=== PATIENT | female | born 1930 | race Caucasian/White ===

== ENCOUNTER 2017-09-04 11:11 | Inpatient (IN) | payer MEDICARE, OTHER ==
--- NOTE | 2017-09-04 11:51 | CT ---
CT HEAD NONCONTRAST DATE: 09/04/17 HISTORY: Altered mental status. Dizziness. COMPARISON: 09/03/17. FINDINGS: The large low density subdural fluid collection along the left frontotemporal convexity is unchanged in size and appearance from the prior exam. Subtle hyperdensity associated with subdural fluid just t o the left of the falx is also stable. Approximately 0.9 cm rightward shift of the septum pellucidum results from the mass effect. No intracranial hemorrhage. IMPRESSION: Stable CT appearance of the large left frontotemporal subdural hematoma with significant mass effect and rightward shift of the septum pellucidum. No new abnormalities compared to the previous exam from 1 day prior. POS: TPC
[2017-09-04 12:48] LABS: #Eosinphils 0.1 thou/uL (0.0-0.7); #Lymphocytes 0.9 thou/uL (1.20-3.40); #Monocytes 0.4 thou/uL (0.11-0.59); #Neutrophils 7.2 thou/uL (1.40-6.50); %Basophils 0.3 % (0.0-1.0); %Eosinophils 0.6 % (0.0-10.0); %Lymphocytes 10.6 % (21.0-51.0); %Monocytes 4.3 % (0.0-10.0); %Neutrophils 84.3 % (42.0-75.0); Mean Corpuscular HGB CONC 32.2 g/dL (32.0-36.0); Mean Corpuscular Hemoglobin 33.4 pg (27.0-31.0); Mean Platelet Volume 5.9 fL (7.4-10.4); Platelet Count 271 thou/uL (130-400); RBC Distribution Width 12.6 % (11.5-14.5); Red Blood Cell (RBC) Count 3.59 mill/uL (4.20-5.40); White Blood Cell (WBC) Count 8.5 thou/uL (4.8-10.8)
[2017-09-04 12:56] LABS: PTT 24.7 SEC (22.9-36.1); Prothrombin Time 13.4 SEC (12.0-14.7)
[2017-09-04 13:06] LABS: ALT (SGPT) 28 U/L (8-55); AST (SGOT) 25 U/L (5-34); Alkaline Phosphatase 129 U/L (40-150); Anion Gap 13 mmol/L (10-20); BUN (Urea Nitrogen) 41 mg/dL (9.8-20.1); Bilirubin, Total 0.7 mg/dL (0.2-1.2); Calc. Creatinine Clearance 0 mL/min (70-130); Calcium 9.3 mg/dL (7.8-10.44); Carbon Dioxide 28 mmol/L (23-31); Chloride 105 mmol/L (98-107); Estimated GFR-MDRD 32; Globulin 3.1 g/dL (2.4-3.5); Glucose 108 mg/dL (83-110); Potassium 4.5 mmol/L (3.5-5.1); Protein, Total 7.1 g/dL (6.0-8.3); Sodium 141 mmol/L (136-145)
[2017-09-04 13:13] LABS: Bilirubin Negative (Negative); Blood, Urine Negative (Negative); Clarity CLEAR (Clear); Glucose, Urine (Dipstick) Negative (Negative); Leukocyte Moderate (Negative); Nitrite Negative (Negative); Protein, Urine (Dipstick) Negative (Neg-Trace); Specific Gravity, Urine 1.016 (1.002-1.036); Urobilinogen 0.2 mg/dL (0.2-1.0); pH, Urine 5.5 (5.0-9.0)
[2017-09-04 13:14] LABS: Bacteria/HPF None Seen HPF (None Seen); RBC/HPF 0-3 HPF (0-3); WBC/HPF 0-3 HPF (0-3)
[2017-09-04 13:16] LABS: Other Microscopic Description Less than 2 mL rec'd
[2017-09-04 13:17] LABS: Hyaline Casts/LPF NONE SEEN LPF (0-3 Hyaline); Renal Epithelial None Seen HPF (0-3); Transitional Epithelial NONE SEEN HPF (0-3)
[2017-09-04 13:24] LABS: Squamous Epithelial 0-3 HPF (0-3)
--- NOTE | 2017-09-04 14:53 | HP ---
This is a 50-minute initial patient consult in which greater than 50% of the exam was spent counselin g and coordinating the patient's care. Remainder of the exam was spent in review of patient's medica l records and appropriate imaging studies. CHIEF COMPLAINT: Right-sided weakness and altered mental status with large left subdural hematoma. HISTORY OF PRESENT ILLNESS: Ms. Haile is a pleasant 86-year-old female who is rather high functioni ng sustained a fall roughly 2 weeks ago. She was seen in [facility] by our neuro surgical colleagues and was later discharged to rehab for similar symptoms as above. The patient was treated nonsurgically and at that time had a falcine subdural hematoma. Review of patient's repeat head CT from yesterday as well as today shows a large left subdural frontal and parietal collection w ith close to 1 cm midline shift. The patient remains at her neurologic baseline over the past 2 week s. Again, there was very high functioning. She does have right-sided weakness and some slurred spee ch with some aphasia, although she is able to answer questions appropriately, she is minimally verbal . Her son, Troy was updated at bedside and provides some of the history for the patient. She was previously on 81 mg aspirin for CVA 3 years ago and the only residual issue was right third digit wea kness. Again, the patient sustained a fall 2 weeks ago, subsequently developed the above symptoms. Neurosurgery is asked to evaluate the patient regarding this. PHYSICAL EXAMINATION: The patient is awake, alert, and appropriate, although when not stimulated, do es appear to rest quietly. She is easily protecting her airway. Her GCS currently is 15. She has o ccasional slurred speech and some word finding difficulties. She is able to correctly identify a pen and identify its purpose; however, it is unable to define the definition of an [place]. She follows commands in all 4 extremities, though does have moderate weakness in the right upper and right lower extremities. She is able to complete index [id number] testing; however, is slowed and less respo nse. She is unable to do this on the right. Her pupils are minimally reactive, but equal bilaterall y. She is hard of hearing. She is unable to raise her arms, in order for me to clearly test pronato r drift. IMPRESSION: Status post fall, roughly 2 weeks ago with a falcine subdural hematoma, now large left-s ided subdural hematoma. PLAN: I have discussed the patient's case and imaging with Dr. Andino as well as the patient at [facility]. The patient is a DNR/DNI code status; however, the patient's son would at least like to attempt to improve the patient's neurologic status. I therefore discussed the procedure of left-sided mayra hole placement and frontal and parietal regions with possibility of conversion into a craniotomy. We plan to do this in the morning as the patient is neurologically stable at this time. Certainly shou ld her condition progress, we may take her to surgery sooner, but again at this time, she does appear to be very stable. I discussed the procedure with the son, Troy at bedside who is her medical pow er of trade mark attorney. He does note perhaps some motivation issues as she was not participating in physical therapy while at her rehab center. He does note when his father 5 years ago, the patient has p erhaps developed some depression; however, again was a very high functioning 86-year-old prior to her recent fall. He does also note that the patient has had some difficulty with anesthesia in the past including some mentation issues and I will discuss this with Dr. Andino, but again the plan remains at this time of left-sided mayra hole placement tomorrow. We will make the patient n.p.o. at this josh e and check appropriate labs. We will also consult a [facility] team for medical management patient's co morbidities. Ample opportunity was given to the patient and her son to discuss her questions and con cerns and I have let them know that it would be very good for family to be present, so that we can di scuss the procedure again in the morning. We will follow back up on the patient, but again will writ e admission orders to the ICU. Xavier Cottrell PA-C dictating for Dr. Jorge Andino.
[2017-09-04] MEDS ORDERED: Calcium Carbonate 500 MG ChewTAB PO PRN (18:19)
[2017-09-04] MEDS ORDERED: Mag-Al 1200 mg/1200 mg/30 ML UDCUP PO PRN (18:19)
[2017-09-04] MEDS ORDERED: traMADol HCl 50 MG TAB PO PRN (18:30)
[2017-09-04] MEDS: Sodium Chloride 0.9% 1,000 ML IV SCH (21:50)
[2017-09-04] MEDS: hydrALAZINE 20 MG/ML VIAL SLOW IVP PRN (23:45)
[2017-09-05 04:15] LABS: #Eosinphils 0.1 thou/uL (0.0-0.7); #Lymphocytes 0.9 thou/uL (1.20-3.40); #Monocytes 0.4 thou/uL (0.11-0.59); #Neutrophils 6.1 thou/uL (1.40-6.50); %Basophils 0.2 % (0.0-1.0); %Eosinophils 1.1 % (0.0-10.0); %Lymphocytes 11.3 % (21.0-51.0); %Monocytes 5.2 % (0.0-10.0); %Neutrophils 82.2 % (42.0-75.0); Hemoglobin 10.7 g/dL (12.0-16.0); Mean Corpuscular HGB CONC 33.4 g/dL (32.0-36.0); Mean Corpuscular Hemoglobin 34.4 pg (27.0-31.0); Mean Platelet Volume 5.8 fL (7.4-10.4); Platelet Count 214 thou/uL (130-400); RBC Distribution Width 12.5 % (11.5-14.5); Red Blood Cell (RBC) Count 3.12 mill/uL (4.20-5.40); White Blood Cell (WBC) Count 7.5 thou/uL (4.8-10.8)
[2017-09-05 04:24] LABS: Anion Gap 15 mmol/L (10-20); BUN (Urea Nitrogen) 41 mg/dL (9.8-20.1); Calc. Creatinine Clearance 24 mL/min (70-130); Calcium 8.9 mg/dL (7.8-10.44); Carbon Dioxide 22 mmol/L (23-31); Chloride 107 mmol/L (98-107); Estimated GFR-MDRD 33; Glucose 95 mg/dL (83-110); Potassium 4.1 mmol/L (3.5-5.1); Sodium 140 mmol/L (136-145)
[2017-09-05] MEDS ORDERED: Lidocaine 0.5%/Epinephrine 1:200,000 50 ml Vial ONE (07:27)
[2017-09-05] MEDS ORDERED: Sodium Chloride 0.9% 10 ML ONE (07:27)
[2017-09-05] MEDS ORDERED: Bacitracin Zinc Ointment 30 gm TUBE ONE (07:28)
[2017-09-05] MEDS ORDERED: Thrombin 5000 UNITS/5 ML VIAL ONE (07:28)
[2017-09-05] MEDS ORDERED: Clindamycin/D5W 900 mg/50 ml Premix Bag ONE (08:22)
[2017-09-05] MEDS ORDERED: Levofloxacin 500 mg/D5W 100 ml Premix Bag ONE (08:22)
[2017-09-05] MEDS ORDERED: Fentanyl 100 MCG/2 ML VIAL ONE (08:22)
--- NOTE | 2017-09-05 08:40 | PRG ---
DATE OF SERVICE: 09/05/2017 SUBJECTIVE: Ms. Haile is known to me from prior spinal surgery. She presented with a falcine subdu ral hematoma in the recent past; however, this was increased along the left frontal region to involve a significant component of a left frontal chronic subdural hematoma resulting in a significant mass effect midline shift, right-sided hemiparesis and language dysfunction. I was contacted by Dr. Raphael wasserman and I recommended transfer to [place] for further evaluation. She has been monitored overnigh t and has been stable, but again has a sizable clot in her left frontal region. On exam, she is esse ntially aphasic. She is alert, but with some significant right-sided hemiparesis and moves left side spontaneously. IMPRESSION AND PLAN: I had a long discussion with her family and frankly at this point, she is DNR. I have given them the option of doing nothing versus mayra hole evacuation. I frankly would recommen d mayra hole evacuation as I think it gives her a chance through a minimally invasive approach to esse ntially improve her quality of life and save her life. If nothing is done, this subdural is shown th at it will progress, but I suspect strongly it would be a very slow progression and neurological decl ine, eventually resulting in her demise. The patient has been somewhat ambivalent, but in through co mmunication with the family, the family feels that she would like to pursue surgery. As such, we maxine l pursue left-sided mayra hole evacuation of subdural hematoma. They understand the risks up to and i ncluding but not limited to wound healing issues such as infection, dehiscence, CSF leak, injury to t he brain and the need for more surgery. We could always reinstate the DNR/DNI in 2 days or in approx imately 48-72 hours after surgery.
[2017-09-05] MEDS ORDERED: Ondansetron HCl/PF 4 MG/2 ML Vial IVP PRN (09:24)
[2017-09-05] MEDS ORDERED: Promethazine HCl 25 MG/ML VIAL SLOW IVP PRN (09:24)
[2017-09-05] MEDS ORDERED: Promethazine HCl 25 MG/ML VIAL IM PRN (09:24)
[2017-09-05] MEDS: Sodium Chloride 0.9% 1,000 ML IV SCH (14:50)
[2017-09-05] MEDS ORDERED: Dexamethasone 20 MG/5 ML VIAL ONE (15:17)
[2017-09-05] MEDS ORDERED: Ondansetron HCl/PF 4 MG/2 ML Vial ONE (15:17)
[2017-09-05] MEDS ORDERED: Lidocaine 1% PF 5 ML VIAL ONE (15:17)
[2017-09-05] MEDS ORDERED: PROPOFOL 200 MG/20 ML VIAL ONE (15:17)
[2017-09-05] MEDS ORDERED: PHENYLEPHRINE-NS 100 MCG/ML 10 ML SYRINGE ONE (15:17)
[2017-09-05] MEDS ORDERED: Esmolol 100 MG/10 ML VIAL ONE (15:17)
[2017-09-05] MEDS ORDERED: Glycopyrrolate 0.2 MG/ML 5 ML SYRINGE ONE (15:17)
--- NOTE | 2017-09-05 17:17 | OP ---
OR: 11. WOUND TYPE: Type 1 wound. SURGEON: Jorge Andino M.D. BUFFING MACHINE TENDER: Xavier Cottrell PA-C Modifier 57 should be added to this surgery as decision to operate was made on the day I saw the [facility] ent. PREPROCEDURE DIAGNOSES: Enlarging left-sided frontal subdural hematoma with mass effect, midline annalise ft, and neurological decline. POSTPROCEDURE DIAGNOSES: Enlarging left-sided frontal subdural hematoma with mass effect, midline sh ift, and neurological decline. PROCEDURES PERFORMED: Left frontoparietal mayra hole evacuation of subdural hematoma and placement of a subdural drain. DESCRIPTION OF PROCEDURE: After informed consent was obtained from the patient's family and the [facility] ent, she was brought to OR 11. Proper patient pause and identification was carried out. She was manuel ree in excellent endotracheal anesthesia and positioned supine on the OR table. Left frontal region and parietal regions were sterilely cleansed, prepared and draped and linear joshi made. This region was sterilely cleansed and draped. Proper patient pause and identification was carried out. Both l eft frontal and parietal linear incisions were made in mayra holes fashion. The dura coagulated. A c ruciate opening was then made in the dura and the membrane penetrated, which revealed a motor oil chr onic subdural hematoma fluid. I evacuated this until the brain was identified underlying in the subd ural drain placed and secured to the scalp. The wound was then copiously irrigated and closed in cassandra tomic layers. The patient emerged from anesthesia.
[2017-09-05] MEDS: Clindamycin/D5W 600 MG in Premix Bag 1 BAG IVPB SCH (21:07)
[2017-09-06] MEDS: hydrALAZINE 20 MG/ML VIAL SLOW IVP PRN (03:05)
[2017-09-06] MEDS: Clindamycin/D5W 600 MG in Premix Bag 1 BAG IVPB SCH ×3 (08:18→20:29)
[2017-09-06] MEDS ORDERED: Diltiazem 125 MG in Sodium Chloride 0.9% 100 ML IVPB SCH (08:45)
[2017-09-06] MEDS: Acetaminophen 325 MG TAB PO PRN (08:57)
[2017-09-06] MEDS: Sodium Chloride 0.9% 1,000 ML IV SCH (09:01)
[2017-09-06] MEDS ORDERED: Famotidine 20 MG TAB PO SCH ×2 (10:00→21:00)
--- NOTE | 2017-09-06 10:26 | PRG ---
DATE OF SERVICE: 09/06/2017 Ms. Haile is postoperative day 1 from left-sided frontoparietal mayra hole evacuation of subdural hem atoma. She has had 300 mL of output from her subdural drain. She is significantly improved. She mo ves both upper extremities to command or bending at her elbows off the bed, a bit more sluggish on th e right side, but wiggles her toes as well and is certainly much more conversant and even largely lesvia ropriate. We will start to sit her head of bed up to 30 degrees. If she tolerates this over the cou rse of the next 1 hour, we will do activity as tolerated. I have placed consultations for physical t herapy and occupational therapy for evaluation and treatment. We will advance her diet as well. We will leave the subdural drain in for 1 more day, likely remove it tomorrow, and transfer to the floor to begin normalization of activity.
--- NOTE | 2017-09-06 11:00 | RAD ---
LEFT SHOULDER 2 VIEWS: Date: 09/06/17 PROVIDED CLINICAL HISTORY: Left arm pain. FINDINGS: There is no evidence for fracture or other acute osseous abnormality. Advanced glenohumeral degenerat camilo arthrosis is noted. Acromioclavicular joint osteoarthrosis is noted. Subacromial space appears pr eserved. Visualized left lung field appears clear. IMPRESSION: Advanced glenohumeral degenerative arthrosis. POS: LEYDI
--- NOTE | 2017-09-06 12:08 | CON ---
DATE OF CONSULTATION: 09/06/2017 REQUESTING PHYSICIAN: Dr. Jorge Andino. CONSULTING PHYSICIAN: Dr. Miguel Courtney REASON FOR CONSULTATION: Left proximal humerus fracture. HISTORY OF PRESENT ILLNESS: This is an 86-year-old female, who was transferred to our facility. She sustained a fall approximately 2 weeks ago. She was seen by Neurosurgery at [facility]. It seems that her symptoms worsened over the last 2 weeks and she was transferred to our facility. Dr. Jorge Andino has performed a mayra hole evacuation yesterday. The patient has improved in her neurologic exam since surgery. Family expressed concerns over multiple falls in the last couple of weeks, most specifically leading to a left proximal humerus fracture. We were asked to see the patient for this reason. At bedside , patient currently states that she has no pain to the left upper extremity. She states that she does not recall falling several weeks ago. She thinks that she fell earlier this week, but she is unsure. She denies any numbness or tingling in the left upper extremity. She denies a history of surgery in the left upper extremity. She is right hand dominant. At this point in time, she believes that she has had some pain medication and is unable to verbalize any more information. PAST MEDICAL HISTORY: Significant for a history of cerebrovascular accident in the past. The patient also has a history of high cholesterol, neuropathy, shingles, diverticulitis, hypoalbuminemia. PAST SURGICAL HISTORY: Includes cataract surgery, appendectomy, cholecystectomy , hysterectomy, and tonsillectomy. SOCIAL HISTORY: The patient states that she lives at home alone. She denies any alcohol, drug, or smoking. FAMILY HISTORY: Reviewed and noncontributory. REVIEW OF SYSTEMS: A 10-point review of systems was conducted and otherwise negative except for as stated above. PHYSICAL EXAMINATION: VITAL SIGNS: Blood pressure 114/62, heart rate of 100, respiratory rate 21. GENERAL: The patient is awake and alert. She is pleasant and cooperative with physical exam today. No family is at bedside at the current time. HEENT: There is a neurosurgical dressing present to her head. There is a drain present as well. NECK: Supple. Trachea is midline. RESPIRATORY: Breathing is nonlabored. EXTREMITIES: The left upper extremity was examined. The patient has intact active and passive range of motion without any pain elicited. The patient is able to forwardly flex approximately to 150 degrees. She is able to externally rotate to neutral. No tenderness to palpation along the humeral shaft. Rotator cuff strength not assessed. Distal neurovascular status is intact. Strength is 5/5 distally with handgrip and flexion/extension of the wrist. RADIOGRAPHIC FINDINGS: Including two views of the left shoulder show evidence of what appears to be a proximal humerus fracture through the neck. This is impacted somewhat. It is minimally displaced. There is evidence of new periosteal bone formation present. I believe this is subacute. Of note, the patient does appear to have [id number]-jr-[id number] contact in the glenohumeral joint with subchondral sclerosis and osteophyte formation present. No dislocation is present. ASSESSMENT: Left proximal humerus fracture with impaction, appears to be subacute. PLAN: At this point in time, a sling has been ordered for the patient. She may wear this as needed; however, it does not appear that she is having a great deal of pain at this time. She may start experiencing more pain when she starts to ambulate. Pain control per protocol. No limitations on range of motion at this time. She may weightbear as tolerated. Thank you for this consultation. She can follow up in the [facility] in 2-3 weeks. TEODORO
--- NOTE | 2017-09-06 12:11 | CT ---
PRELIMINARY REPORT/[facility]/EMERGENCY AFTER HOURS PROCEDURE: EXAM: CT Head Without Intravenous Contrast CLINICAL HISTORY: 86 years old, female; Condition or disease; Other: Sdh; Prior surgery; Surgery date: Post-operative ( 0-2 days); Surgery type: Mcrae holes; Patient HX: F/u sdh; S/P mayra holes TECHNIQUE: Axial computed tomography images of the head/brain without intravenous contrast. COMPARISON: CT Brain WO Con 2017-09-04 11:39 FINDINGS: Brain: Significant decrease in size of left anterior frontal subdural collection post mayra hole and s ubdural drain placement. Small volume pneumocephalus noted related to recent surgery. No acute stroke or parenchymal hemorrhage. Stable age related volume loss and chronic microvascular changes. Ventricles: Nondilated. Decrease in midline shift from approximately 8 mm to 4 mm. Bones/joints: See above. Soft tissues: No acute findings. Skin sriram left scalp. Sinuses: Unremarkable as visualized. No acute sinusitis. Mastoid air cells: Unremarkable as visualized. No mastoid effusion. IMPRESSION: Decrease in size of left anterior frontal subdural collection post mayra hole placement and drainage. Decrease in midline shift. No acute stroke visible. Thank you for allowing us to participate in the care of your patient. Dictated and Authenticated by: Judi Delaney MD 09/06/2017 5:24 AM Central Time ([place] & [place]) FINAL REPORT EMERGENCY AFTER HOURS CT BRAIN PERFORMED WITHOUT CONTRAST ENHANCEMENT: Date: 09/06/17 HISTORY: Follow-up subdural hematoma. COMPARISON: 09/04/17. FINDINGS: The left-sided subdural predominantly low density fluid collection is reduced in size. Subdural drain is in place. There is still some subacute blood along the left side of the falx. The shift of midlin e structures is less pronounced. IMPRESSION: Decrease in size of the subdural fluid collection with subdural drain in place. There is also decreas ing mass effect. This report is in agreement with the preliminary report issued by [facility]. POS: CHRIS
--- NOTE | 2017-09-06 12:17 | CON ---
DATE OF CONSULTATION: 09/06/2017 CONSULTING PHYSICIAN: Dr. Andino. REASON FOR CONSULTATION: ICU management. HISTORY OF PRESENT ILLNESS: Ms. Haile is an 86-year-old female, who was hospitalized a couple days ago with right-sided weakness and altered mental status. She had a large left subdural hematoma. Glen lindo underwent mayra hole placement yesterday. Her neurologic status has improved. She is now awake and alert and in no acute distress. PAST MEDICAL HISTORY: 1. Hypertension. 2. Arthritis. 3. Hyperlipidemia. 4. Neuropathy. 5. Diverticulitis. 6. Back pain. 7. Hypoalbuminemia. PAST SURGICAL HISTORY: Tonsillectomy, appendectomy, cholecystectomy, hysterectomy, cataract surgery, lumbar decompression, recent mayra hole surgery. SOCIAL HISTORY: Nonsmoker, does not consume alcohol. ALLERGIES: PENICILLIN, TORADOL, BACITRACIN, SULFA. MEDICATIONS: Prior to admission, amlodipine, tramadol, verapamil, alendronate, torsemide, sertraline , melatonin, Zestril, dapsone, atorvastatin, and aspirin. REVIEW OF SYSTEMS: Twelve-point review of systems was otherwise negative. PHYSICAL EXAMINATION: VITAL SIGNS: Temperature 98.3, pulse 119, respirations 27, O2 sat 90% on 2 liters. GENERAL: She is awake and alert, in no distress. HEENT EXAM: Remarkable for a bandage around her head with a drain coming out the left side. Orophar ynx clear. Pupils react to light. NECK: No JVD. LUNGS: Clear without wheezing. CARDIOVASCULAR: S1 and S2 regular, without murmur. ABDOMEN: Soft, nontender, nondistended. EXTREMITIES: No clubbing, cyanosis, or edema. LABORATORY DATA: White blood cell count 7.5, hematocrit 32, platelet count 214. Sodium 140, potassi um 4.1, chloride 107, CO2 of 22, BUN 41, creatinine 1.5, glucose 95. ASSESSMENT: 1. Status post subdural hematoma with mayra hole placement and subsequent good postoperative result. 2. History of hypertension. 3. History of other medical problems as listed above. PLAN: 1. Start diet. 2. Resume hypertensive medications when okay with Cardiology. 3. No acute pulmonary needs are identified at this time. The above encompassed 70 minutes of time, and of that time, greater than 50% was spent with the patie nt and/or the patient was seen in the hospital.
--- NOTE | 2017-09-06 12:55 | CON ---
HISTORY: Ms. Kimberley Haile is an 86-year-old white female who was admitted on 09/04/2017. She apparently had a fall 2 weeks prior to that. She had problems with right-sided weakness and altered mental status and was brought to the hospital and found to have a large left subdural hematoma. She had history of a small left frontal lobe cortical infarct in 01/2015. On 09/05/17, she underwent drainage of the left subdural hematoma due to midline shift and neurological decline. This appeared to be enlarging. In review of her rhythm, she did have atrial fibrillation on the day of admission, but spontaneously converted to sinus rhythm. This seemed to pretty much settle down to where she is in sinus rhythm after that until this morning when she again went into atrial fibrillation with fast ventricular response of 126 per minute. She was given 10 mg Cardizem IV and placed on 5 mg per hour drip and has converted back to sinus rhythm. The patient denies any previous episodes of palpitations or rapid heartbeat. She denies any previous chest discomfort or shortness of breath and denies any cardiac problems. PAST MEDICAL HISTORY: Hypertension, hypercholesterolemia, previous stroke, arthritis, diverticulitis. OPERATIONS: Tonsillectomy, appendectomy, cholecystectomy, hysterectomy, cataract surgery, lumbar surgery. MEDICATIONS: At home include amlodipine 2.5 mg every day, aspirin 81 mg q.a.m. , atorvastatin 40 mg at bedtime, dapsone 25 mg daily, vitamin D2, ibandronate 150 q.30 days, lisinopril 1 tablet unknown dose daily, melatonin 3 mg at bedtime , sertraline 12.5 mg daily, Torsemide 10 mg p.r.n., verapamil 240 mg b.i.d. ALLERGIES: NEOSPORIN, BACITRACIN, TORADOL, NEOMYCIN, PENICILLIN, SULFA DRUGS, and TRIMETHOPRIM. SOCIAL HISTORY: She denies any smoking or drinking. REVIEW OF SYSTEMS: Twelve point review of systems otherwise unremarkable. PHYSICAL EXAMINATION: VITAL SIGNS: Blood pressure 130/62, pulse of 117. HEENT: PERRL. NECK: Supple. CHEST: Clear. CARDIAC: S1 and S2 are normal, without any S3, S4 or murmurs. Carotid upstrokes normal, without bruits. ABDOMEN: Normal bowel sounds, without tenderness, organomegaly. EXTREMITIES: Revealed no clubbing, cyanosis or edema. NEUROLOGIC: Grossly intact. LABORATORY DATA AND IMAGING: EKG revealed atrial fibrillation with fast ventricular response. Hemoglobin 10.7, hematocrit 32.1, white count 7500, platelets 214,000. INR 1.0. Sodium 140, potassium 4.1, chloride 107, carbon dioxide 22, BUN 41, creatinine 1.49. IMPRESSION: 1. Left subdural hematoma status post drainage. She apparently had a fall 2 weeks prior to admission. 2. Paroxysmal atrial fibrillation, converting after intravenous Cardizem. She is on verapamil 240 b.i.d. at home; however, that has not been resumed, but stopped. 3. Hypertension. 4. Hypercholesterolemia. 5. Chronic kidney injury with some degree of acute kidney injury. It looks as if she is somewhat volume depleted from looking at her BUN and creatinine. PLAN: Verapamil will be resumed, but it is somewhat reduced dose and Cardizem will be discontinued later in the day. Hopefully, reinstitution of her p.o. verapamil will control her atrial arrhythmias. She is certainly not a candidate for anticoagulation with just having a subdural hematoma drained. TEODORO
[2017-09-07 05:41] LABS: Anion Gap 12 mmol/L (10-20); BUN (Urea Nitrogen) 46 mg/dL (9.8-20.1); Calc. Creatinine Clearance 22 mL/min (70-130); Calcium 8.9 mg/dL (7.8-10.44); Carbon Dioxide 20 mmol/L (23-31); Cardiac Risk 2.6 (Less than 4.5); Chloride 111 mmol/L (98-107); Cholesterol 143 mg/dl (< 200 Desired); Estimated GFR-MDRD 33; Glucose 91 mg/dL (83-110); HDL Cholesterol 55 mg/dL (>60 Neg Risk); LDL Cholesterol, Calculated 71 mg/dL; Potassium 4.4 mmol/L (3.5-5.1); Sodium 139 mmol/L (136-145); Triglycerides 84 mg/dL (Less than 150)
[2017-09-07] MEDS: Sodium Chloride 0.9% 1,000 ML IV SCH (08:01)
[2017-09-07] MEDS: Clindamycin/D5W 600 MG in Premix Bag 1 BAG IVPB SCH ×2 (08:01→14:28)
[2017-09-07] MEDS: Famotidine 20 MG TAB PO SCH (08:02)
--- NOTE | 2017-09-07 08:03 | PRG ---
DATE OF SERVICE: 09/07/2017 SUBJECTIVE: The patient had her drain removed this morning. She says she feels okay, had no acute c omplaints. PHYSICAL EXAMINATION: VITAL SIGNS: Her temperature is 98.3, pulse 73, blood pressure 154/64, O2 sat 96%. Total intake for 24 hours is 1830, output 1245. HEENT: Unremarkable except for the bandage around her head. NECK: No JVD. LUNGS: Clear without wheezing. CARDIAC: S1, S2, sinus without murmur. ABDOMEN: Soft, nontender. EXTREMITIES: No edema. LABORATORY DATA: Sodium 139, potassium 4.4, chloride 111, CO2 20, BUN 46, creatinine 1.4, glucose 91 . ASSESSMENT: 1. Paroxysmal atrial fibrillation. 2. Status post mayra hole placement for subdural hematoma. 3. History of hypertension. PLAN: From my standpoint, it is okay for transfer to telemetry. No obvious pulmonary issues at this time. I will sign off. Please recall if further assistance needed.
--- NOTE | 2017-09-07 08:55 | PRG ---
DATE OF SERVICE: 09/07/2017 Ms. Haile is now postoperative day #2, having undergone left-sided bur hole placement for subdural h ematoma. She continues to improve neurologically. She is more verbal today. Her drain output has b een around 200. PT has been ordered but they will consult her later today. She follows commands in all 4 extremities. She is hard of hearing, but is oriented to person, place and time. I have remove d her drain and she tolerated this well. She is stable for transfer to telemetry when cleared by Car diology and we will consult our medical colleagues to help with medical management of the patient's c omorbidities. She may have a diet as tolerated and activity as tolerated. Overall, she is doing misael y well postoperatively. Please call with any changing in the patient's neurologic status.
[2017-09-07 12:01] LABS: #Basophils 0.1 thou/uL (0.0-0.2); #Lymphocytes 0.8 thou/uL (1.20-3.40); #Monocytes 0.7 thou/uL (0.11-0.59); #Neutrophils 7.2 thou/uL (1.40-6.50); %Basophils 0.7 % (0.0-1.0); %Eosinophils 0.4 % (0.0-10.0); %Monocytes 7.9 % (0.0-10.0); %Neutrophils 82.1 % (42.0-75.0); Hemoglobin 10.6 g/dL (12.0-16.0); Mean Corpuscular HGB CONC 32.2 g/dL (32.0-36.0); Mean Corpuscular Hemoglobin 33.9 pg (27.0-31.0); Mean Platelet Volume 5.9 fL (7.4-10.4); PLT Morphology Comment Appears Adequate; Platelet Count 205 thou/uL (130-400); RBC Distribution Width 12.7 % (11.5-14.5); Red Blood Cell (RBC) Count 3.13 mill/uL (4.20-5.40); White Blood Cell (WBC) Count 8.8 thou/uL (4.8-10.8)
--- NOTE | 2017-09-07 15:05 | EKG ---
Test Reason : STAT Blood Pressure : / mmHG Vent. Rate : 126 BPM Atrial Rate : 131 BPM P-R Int : 000 ms QRS Dur : 088 ms QT Int : 334 ms P-R-T Axes : 000 135 177 degrees QTc Int : 483 ms Suspect arm lead reversal, interpretation assumes no reversal Atrial fibrillation with rapid ventricular response Left posterior fascicular block Abnormal ECG When compared with ECG of 09-OCT-2015 13:45, Atrial fibrillation has replaced Sinus rhythm Vent. rate has increased BY 57 BPM Nonspecific T wave abnormality now evident in Inferior leads T wave inversion now evident in Lateral leads Confirmed by TRINA URIBE ([id number]) on 09/07/2017 3:04:58 PM Referred By: IHSAN Confirmed By:TRINA URIBE
--- NOTE | 2017-09-07 16:32 | CON ---
DATE OF CONSULTATION: 09/07/2017 PRIMARY CARE PHYSICIAN: Dr. Alvaro Castro. PRIMARY ATTENDING: Jorge Andino M.D. REASON FOR CONSULTATION: Medical comanagement. HISTORY OF PRESENT ILLNESS: An 86-year-old female who was admitted under neurosurgeon on 09/04/2017. The patient was admitted for right-sided weakness and altered mental status. She had CT brain in [facility] emergency room, which showed large left-sided subdural hematoma. The patient had a mechanical fal l 2 weeks ago prior to admission and subsequently the patient was found with a subdural hematoma, but her condition gotten worse and she developed altered mental status and that is why she required to c ome to the emergency room. After this emergency room visit, the patient was admitted under neurosurg mirima and the patient had mayra hole surgery. The patient remained in CCU up until today and subsequent ly the patient was transferred to telemetry floor. The patient also developed atrial fibrillation wi th rapid ventricular response that was controlled with Cardizem drip. The patient used to take verap kenny ER at home, but that medication was not given and that medication is resumed by criminal psychologist mya queen. Currently, the patient is in sinus rhythm and rate is under control. The patient is very hard o f hearing and unable to obtain any history from her. Currently, the patient is stable and she denies any headaches. She denies any nausea or vomiting. She denies any UTI symptoms. She denies any noah st pain, palpitation or shortness of breath. REVIEW OF SYSTEMS: Please see my HPI for pertinent positive and negative. All other review of syste m reviewed and negative except as mentioned in the HPI. Constitutional: Weight loss or gain, abilit y to conduct usual activities. Skin: Rash, itching. Eyes: Double vision, pain. ENT/Mouth: Nose bleeding, neck stiffness, pain, tenderness. Cardiovascular: Palpitations, dyspnea on exertion, orth opnea. Respiratory: Shortness of breath, wheezing, cough, hemoptysis, fever or night sweats. Gastr ointestinal: Poor appetite, abdominal pain, heartburn, nausea, vomiting, constipation, or diarrhea. Genitourinary: Urgency, frequency, dysuria, nocturia. Musculoskeletal: Pain, swelling. Neurologi c/Psychiatric: Anxiety, depression. Allergy/Immunologic: Skin rash, bleeding tendency. PAST MEDICAL HISTORY: Hypertension, dyslipidemia, history of stroke, osteoarthritis, diverticulosis. PAST SURGICAL HISTORY: Tonsillectomy, appendicectomy, cholecystectomy, hysterectomy, cataract surger y, back surgery, status post mayra hole surgery for subdural hematoma. ALLERGIES: BACITRACIN, TORADOL. CURRENT HOME MEDICATIONS: Fosamax 70 mg every 7 days, amlodipine 2.5 mg p.o. daily, aspirin 81 mg p. o. daily, Lipitor 40 mg p.o. at bedtime, dapsone 25 mg p.o. daily, vitamin D2 50,000 units p.o. as di rected, lisinopril 20 mg p.o. daily, melatonin 3 mg p.o. at bedtime, Zoloft 12.5 mg p.o. daily, verap kenny ER 240 mg p.o. b.i.d., Ocuvite 1 tablet p.o. daily, tramadol 50 mg q.4 hourly p.r.n. FAMILY HISTORY: No strong family history of premature coronary artery disease, stroke or cancer. HOSPITAL COURSE: Reviewed. SOCIAL HISTORY: The patient does not have any tobacco, alcohol or illicit drug abuse history. PHYSICAL EXAMINATION: VITAL SIGNS: Currently, temperature 98.9, pulse 83, respiratory rate 16, saturation 92% on room air, blood pressure 137/65, weight 118 pounds. GENERAL: The patient is currently alert, awake, in no obvious acute distress. HEENT: Surgical site is covered with a dressing. NECK: Supple. No JVD, no thyromegaly, no carotid bruit. LUNGS: Clear to auscultation without any rhonchi or rales. CARDIAC: S1, S2 appears regular. No murmur elicited, no gallop, no rub. ABDOMEN: Soft, bowel sounds present, nontender, nondistended. No organomegaly, no mass, no suprapub ic tenderness. BACK: Unremarkable. No CVA tenderness. EXTREMITIES: Upper extremity, passive movement of all joints are normal. Lower extremity, passive m ovements of all joints are normal. No edema. Good peripheral pulsation. SKIN: No skin rash. HEMATOLOGICAL: No lymphadenopathy. PSYCHIATRIC: Normal affect. SIGNIFICANT LABORATORY DATA: Echocardiography showed diastolic dysfunction, EF 55%-60%. Shoulder x- ray showed glenohumeral degenerative arthrosis. CT brain showing subdural hematoma on the left side after bur holes surgery. Repeat CT brain showed decrease in subdural hematoma. CBC: WBC 8.8, hemog lobin 10.6, MCV 105.0, platelet 205,000. INR 1.0. BMP: Sodium 141, potassium 4.5, chloride 105, ca rbon dioxide 28, BUN 41, creatinine 1.55, glucose 108, calcium 9.3. LFT: AST 25, ALT 28, alkaline p hosphatase is 129, albumin 4.0, LDL 71, HDL 55. Urinalysis: Leukocyte esterase moderate. IMPRESSION: 1. Mechanical fall 2 weeks ago followed by subdural hematoma, left side. 2. Right-sided weakness with encephalopathy due to mechanical fall 2 weeks ago followed by subdural hematoma, left side, status post mayra hole surgery for subdural hematoma. 3. Atrial fibrillation with rapid ventricular response, paroxysmal atrial fibrillation converted to sinus rhythm after Cardizem and currently heart rate maintained with verapamil. 4. Macrocytic anemia. 5. Chronic kidney disease stage 3. 6. Asymptomatic bacteriuria. 7. Osteoporosis. 8. Dyslipidemia. 9. Anxiety and depression. 10. Macular degeneration. 11. Mild protein calorie malnutrition. 12. DNR status. PLAN: We will resume selected home medication including amlodipine, Lipitor, lisinopril, melatonin, Zoloft, verapamil ER. Monitor on telemetry floor. Send urine culture. Cardiology following for atr ial fibrillation. Neurosurgeon managing subdural hematoma. This patient will need placement. PT, O T will be started. manager pet will be consulted. The patient has sling for humeral fracture. CODE STATUS: DNR, discussed with the patient. Gastrointestinal prophylaxis, Protonix 40 mg p.o. daily. DISPOSITION PLAN: Based on clinical course. Thank you for the consult. We will follow up with you while in hospital.
[2017-09-07] MEDS: Acetaminophen 325 MG TAB PO PRN (18:04)
[2017-09-07] MEDS ORDERED: Ziprasidone 20 MG CAP PO SCH (18:45)
[2017-09-07] MEDS: Atorvastatin Calcium 40 MG TAB PO SCH (21:46)
[2017-09-07] MEDS: Melatonin 3 MG TAB PO SCH (21:46)
[2017-09-08] MEDS ORDERED: Diltiazem HCl 125 MG, Admixture Fee 1 EACH in Sodium Chloride 0.9% 100 ML IVPB SCH (05:45)
[2017-09-08 05:53] LABS: Anion Gap 11 mmol/L (10-20); BUN (Urea Nitrogen) 35 mg/dL (9.8-20.1); Calc. Creatinine Clearance 27 mL/min (70-130); Calcium 8.8 mg/dL (7.8-10.44); Carbon Dioxide 21 mmol/L (23-31); Chloride 112 mmol/L (98-107); Estimated GFR-MDRD 42; Glucose 96 mg/dL (83-110); Sodium 140 mmol/L (136-145)
[2017-09-08] MEDS: Famotidine 20 MG TAB PO SCH (08:44)
[2017-09-08] MEDS: Cyanocobalamin (Vitamin B-12) 1,000 MCG TAB PO SCH (08:45)
[2017-09-08] MEDS: Lisinopril 20 MG TAB PO SCH (08:47)
[2017-09-08] MEDS: Folic Acid 1 MG TAB PO SCH (08:47)
[2017-09-08] MEDS: Vit A,C & E/Lutein/Minerals Tablet PO SCH (08:47)
[2017-09-08] MEDS ORDERED: Amlodipine 5 MG TAB PO SCH ×2 (09:00)
--- NOTE | 2017-09-08 09:48 | PDOC.PN ---
- Subjective Encounter Start Date: 09/08/17 Encounter Start Time: 07:40 -: old records requested/rev Patient seen and examined for afib, last night she had afib with RVR so cardizem drip was restarted, no fever - Objective MAR Reviewed: Yes Vital Signs & Weight: Vital Signs (12 hours) Temp Pulse Resp BP BP Pulse Ox 09/08/17 08:47 154/68 H 09/08/17 08:46 137 H 154/68 H 09/08/17 08:00 98.4 F 137 H 20 151/89 H 95 09/08/17 04:00 97.8 F 90 18 177/75 H 98 Weight Admit Weight 126 lb Weight 118 lb 9.739 oz Most Recent Monitor Data Heart Rate from ECG 84 NIBP 124/58 NIBP BP-Mean 76 Respiration from ECG 28 SpO2 97 I&O: 09/07/17 09/08/17 09/09/17 06:59 06:59 06:59 Intake Total 1830 845 Output Total 1245 450 Balance 585 395 Result Diagrams: 09/07/17 11:24 09/08/17 05:11 EKG Reviewed by me: Yes (afib with RVR) Phys Exam - Physical Examination Constitutional: NAD head surgical site with dressing HEENT: PERRLA, moist MMs, sclera anicteric Neck: no JVD, supple Respiratory: no wheezing, no rales, no rhonchi Cardiovascular: no significant murmur, irregular Gastrointestinal: soft, non-tender, no distention, positive bowel sounds Musculoskeletal: no edema, pulses present Neurological: moves all 4 limbs Lymphatic: no nodes Psychiatric: normal affect Skin: no rash, normal turgor Dx/Plan (1) Acute worsening of stage 3 chronic kidney disease Code(s): N18.3 - CHRONIC KIDNEY DISEASE, STAGE 3 (MODERATE) Status: Acute Comment: improving (2) Fall Code(s): W19.XXXA - UNSPECIFIED FALL, INITIAL ENCOUNTER Status: Acute Qualifiers: Encounter type: subsequent encounter Qualified Code(s): W19.XXXD - Unspecified fall, subsequent encounter Comment: fall 2 weeks ago (3) Subdural hematoma, acute Code(s): S06.5X9A - TRAUM SUBDR HEM W LOC OF UNSP DURATION, INIT Status: Acute Comment: with neurological deficit (4) History of mayra hole surgery Code(s): Z98.890 - OTHER SPECIFIED POSTPROCEDURAL STATES Status: Acute Comment: this admission required mayra hole surgery (5) Paroxysmal atrial fibrillation with RVR Code(s): I48.0 - PAROXYSMAL ATRIAL FIBRILLATION Status: Acute (6) Anxiety and depression Code(s): F41.9 - ANXIETY DISORDER, UNSPECIFIED; F32.9 - MAJOR DEPRESSIVE DISORDER, SINGLE EPISODE, UNSPECIFIED Status: Chronic (7) HLD (hyperlipidemia) Code(s): E78.5 - HYPERLIPIDEMIA, UNSPECIFIED Status: Chronic (8) HTN (hypertension) Code(s): I10 - ESSENTIAL (PRIMARY) HYPERTENSION Status: Chronic (9) Macrocytic anemia Code(s): D53.9 - NUTRITIONAL ANEMIA, UNSPECIFIED Status: Chronic (10) Macular degeneration Code(s): H35.30 - UNSPECIFIED MACULAR DEGENERATION Status: Chronic (11) Osteoporosis Code(s): M81.0 - AGE-RELATED OSTEOPOROSIS W/O CURRENT PATHOLOGICAL FRACTURE Status: Chronic - Plan cont current plan of care, plan discussed w/ family * continue cardizem drip for rate control * she is not a candidate for chronic anticoagulation due to SDH * medication reviewed as below * symptomatic treatment * discussed with family * eventually she will go to [facility]. Review of Systems - Review of Systems Eyes: negative: Pain, Vision Change, Conjunctivae Inflammation, Eyelid Inflammation, Redness, Other ENT: negative: Ear Pain, Ear Discharge, Nose Pain, Nose Discharge, Nose Congestion, Mouth Pain, Mouth Swelling, Throat Pain, Throat Swelling, Other Respiratory: negative: Cough, Dry, Shortness of Breath, Hemoptysis, SOB with Excertion, Pleuritic Pain, Sputum, Wheezing Cardiovascular: negative: chest pain, palpitations, orthopnea, paroxysmal nocturnal dyspnea, edema, light headedness, other Gastrointestinal: negative: Nausea, Vomiting, Abdominal Pain, Diarrhea, Constipation, Melena, Hematochezia, Other Genitourinary: negative: Dysuria, Frequency, Incontinence, Hematuria, Retention , Other Musculoskeletal: negative: Neck Pain, Shoulder Pain, Arm Pain, Back Pain, Hand Pain, Leg Pain, Foot Pain, Other Skin: negative: Rash, Lesions, Reinaldo, Bruising, Other - Medications/Allergies Allergies/Adverse Reactions: Allergies Allergy/AdvReac Type Severity Reaction Status Date / Time bacitracin Allergy Mild Verified 11/14/15 00:46 [From Neosporin ([id number])] bacitracin zinc Allergy Verified 11/14/15 00:46 [From Neosporin ([id number])] ketorolac tromethamine Allergy Verified 11/14/15 00:46 [From Toradol] neomycin sulfate Allergy Verified 11/14/15 00:46 [From Neosporin ([id number])] Penicillins Allergy Verified 11/14/15 00:46 polymyxin B Allergy Verified 11/14/15 00:46 [From Neosporin ([id number])] sulfamethoxazole Allergy Verified 11/14/15 00:46 [From Bactrim] trimethoprim [From Bactrim] Allergy Verified 11/14/15 00:46 Medications: Current Medications Acetaminophen (Tylenol) 650 mg PO Q4H PRN PRN Reason: Headache/Fever or Pain Last Admin: 09/07/17 18:04 Dose: 650 mg Al Hydroxide/Mg Hydroxide (Maalox) 30 ml PO Q6H PRN PRN Reason: Heartburn or Indigestion Amlodipine Besylate (Norvasc) 5 mg PO DAILY [facility] Last Admin: 09/08/17 08:46 Dose: 5 mg Atorvastatin Calcium (Lipitor) 40 mg PO [facility] Last Admin: 09/07/17 21:46 Dose: Not Given Calcium Carbonate (Tums) 1,000 mg PO Q4H PRN PRN Reason: Heartburn or Indigestion Cyanocobalamin (Vitamin B-12) 1,000 mcg PO DAILY [facility] Last Admin: 09/08/17 08:45 Dose: 1,000 mcg Famotidine (Pepcid) 20 mg PO DAILY [facility] Last Admin: 09/08/17 08:44 Dose: 20 mg Folic Acid (Folvite) 1 mg PO DAILY [facility] Last Admin: 09/08/17 08:47 Dose: 1 mg Hydralazine HCl (Apresoline) 5 mg SLOW IVP Q4H PRN PRN Reason: sbp greater than 150 Last Admin: 09/06/17 03:05 Dose: 5 mg Diltiazem HCl 125 mg/Miscellaneous Medication 1 each/ Sodium Chloride 125 mls @ 5 mls/hr IVPB INF HILDA; As Directed PRN Reason: Protocol Last Admin: 09/08/17 06:11 Dose: 125 mls Lisinopril (Zestril) 20 mg PO DAILY [facility] Last Admin: 09/08/17 08:47 Dose: 20 mg Melatonin (Melatonin) 3 mg PO HS [facility] Last Admin: 09/07/17 21:46 Dose: 3 mg Multivitamins/Minerals (Ocuvite With Lutein) 1 tab PO DAILY [facility] Last Admin: 09/08/17 08:47 Dose: 1 tab Pantoprazole Sodium (Protonix) 40 mg PO DAILY [facility] Last Admin: 09/08/17 08:45 Dose: 40 mg Sertraline HCl (Zoloft) 12.5 mg PO DAILY [facility] Last Admin: 09/08/17 08:46 Dose: 12.5 mg Sodium Chloride (Flush - Normal Saline) 10 ml IVF Q12HR [facility] Last Admin: 09/08/17 08:48 Dose: 10 ml Sodium Chloride (Flush - Normal Saline) 10 ml IVF PRN PRN PRN Reason: Saline Flush Verapamil HCl (Calan Sr) 240 mg PO DAILY [facility] Last Admin: 09/08/17 08:46 Dose: 240 mg
--- NOTE | 2017-09-08 10:23 | PRG ---
DATE OF SERVICE: 09/08/2017 Ms. Haile is postoperative day 3 from a bur hole evacuation of left-sided subdural hematoma. She co ntinues neurologically to look much improved compared to preoperatively. She is more conversant and largely appropriate. She moves all extremities to command. Her left shoulder x-ray really did not d emonstrate any evidence of a fracture. We will discuss this with our orthopedic colleagues and at th is point we will continue to mobilize her as best we can. I have talked to her about staying motivat ed. The biggest issue we are dealing with now other than slow to mobilize is atrial fibrillation wit h rapid ventricular response which occurred again today. She has remained hemodynamically stable dur ing these periods. Our Cardiology colleagues are following along . I have pursued echocardiography. Ideally, I would like to get her to rehab or back to [facility].
[2017-09-08] MEDS: Acetaminophen 325 MG TAB PO PRN (12:46)
[2017-09-08] MEDS: Atorvastatin Calcium 40 MG TAB PO SCH (21:26)
[2017-09-08] MEDS: Melatonin 3 MG TAB PO SCH (21:27)
[2017-09-09 05:40] LABS: Anion Gap 12 mmol/L (10-20); BUN (Urea Nitrogen) 30 mg/dL (9.8-20.1); Calc. Creatinine Clearance 29 mL/min (70-130); Calcium 8.7 mg/dL (7.8-10.44); Carbon Dioxide 21 mmol/L (23-31); Chloride 111 mmol/L (98-107); Estimated GFR-MDRD 45; Glucose 101 mg/dL (83-110); Potassium 4.3 mmol/L (3.5-5.1); Sodium 140 mmol/L (136-145)
[2017-09-09] MEDS: Saccharomyces boulardii 250 MG CAP PO SCH (09:09)
[2017-09-09] MEDS: Vit A,C & E/Lutein/Minerals Tablet PO SCH (09:09)
[2017-09-09] MEDS: Famotidine 20 MG TAB PO SCH (09:09)
[2017-09-09] MEDS: Folic Acid 1 MG TAB PO SCH (09:09)
[2017-09-09] MEDS: Cyanocobalamin (Vitamin B-12) 1,000 MCG TAB PO SCH (09:09)
--- NOTE | 2017-09-09 09:48 | PRG ---
DATE OF SERVICE: 09/09/2017 Ms. Haile is now postoperative day #4, having undergone left-sided bur holes for subdural hematoma. She continues to improve. She has had intermittent episodes of atrial fibrillation with RVR, being managed by Cardiology and our medical colleagues. She remains improving neurologic function. She is much more awake and alert today, especially with her son at bedside. She is able to follow commands in all 4 extremities, but does appear to be weaker on the right side. She is stable for discharge f rom a neurosurgical perspective in regards to going back to rehab and I think that she would benefit greatly from continued physical therapy. Her sriram will need to be removed 14-17 days postoperativ libby and can either be done at our office or at the rehab center. We will also schedule a noncontrast head CT in the next several weeks or sooner should her neurologic status change. Please call with a ny questions, otherwise Neurosurgery will sign off at this time.
--- NOTE | 2017-09-09 09:58 | PDOC.PN ---
- Subjective Encounter Start Date: 09/09/17 Encounter Start Time: 07:40 Patient seen and examined for subdural hematoma. Her apatite is good, she is in NSR. No new complaints. No overnight events - Objective MAR Reviewed: Yes Vital Signs & Weight: Vital Signs (12 hours) Temp Pulse Resp BP Pulse Ox 09/09/17 03:46 98.7 F 72 13 130/60 92 L Weight Admit Weight 126 lb Weight 118 lb 9.739 oz Most Recent Monitor Data Heart Rate from ECG 84 NIBP 124/58 NIBP BP-Mean 76 Respiration from ECG 28 SpO2 97 I&O: 09/08/17 09/09/17 09/10/17 06:59 06:59 06:59 Intake Total 845 673 Output Total 450 Balance 395 673 Result Diagrams: 09/07/17 11:24 09/09/17 04:37 EKG Reviewed by me: Yes (nsr) Phys Exam - Physical Examination Constitutional: NAD HEENT: PERRLA, moist MMs, sclera anicteric Neck: no JVD, supple Respiratory: no wheezing, no rales, no rhonchi Cardiovascular: RRR, no significant murmur, no rub Gastrointestinal: soft, non-tender, no distention, positive bowel sounds Musculoskeletal: no edema, pulses present Neurological: non-focal, normal sensation, moves all 4 limbs Lymphatic: no nodes Psychiatric: normal affect, A&O x 3 Skin: no rash, normal turgor Dx/Plan (1) Acute worsening of stage 3 chronic kidney disease Code(s): N18.3 - CHRONIC KIDNEY DISEASE, STAGE 3 (MODERATE) Status: Acute Comment: improving (2) Fall Code(s): W19.XXXA - UNSPECIFIED FALL, INITIAL ENCOUNTER Status: Acute Qualifiers: Encounter type: subsequent encounter Qualified Code(s): W19.XXXD - Unspecified fall, subsequent encounter Comment: fall 2 weeks ago (3) Subdural hematoma, acute Code(s): S06.5X9A - TRAUM SUBDR HEM W LOC OF UNSP DURATION, INIT Status: Acute Comment: with neurological deficit (4) History of mayra hole surgery Code(s): Z98.890 - OTHER SPECIFIED POSTPROCEDURAL STATES Status: Acute Comment: this admission required mayra hole surgery (5) Paroxysmal atrial fibrillation with RVR Code(s): I48.0 - PAROXYSMAL ATRIAL FIBRILLATION Status: Acute (6) Anxiety and depression Code(s): F41.9 - ANXIETY DISORDER, UNSPECIFIED; F32.9 - MAJOR DEPRESSIVE DISORDER, SINGLE EPISODE, UNSPECIFIED Status: Chronic (7) HLD (hyperlipidemia) Code(s): E78.5 - HYPERLIPIDEMIA, UNSPECIFIED Status: Chronic (8) HTN (hypertension) Code(s): I10 - ESSENTIAL (PRIMARY) HYPERTENSION Status: Chronic (9) Macrocytic anemia Code(s): D53.9 - NUTRITIONAL ANEMIA, UNSPECIFIED Status: Chronic (10) Macular degeneration Code(s): H35.30 - UNSPECIFIED MACULAR DEGENERATION Status: Chronic (11) Osteoporosis Code(s): M81.0 - AGE-RELATED OSTEOPOROSIS W/O CURRENT PATHOLOGICAL FRACTURE Status: Chronic - Plan cont current plan of care, plan discussed w/ family, PT/OT, social sciences instructor * medication reviewed as below * symptomatic treatment * medically stable * continue home dose of verapamil, currently in NSR, * discussed with son * discharge will defer to primary team. Review of Systems - Review of Systems Eyes: negative: Pain, Vision Change, Conjunctivae Inflammation, Eyelid Inflammation, Redness, Other ENT: negative: Ear Pain, Ear Discharge, Nose Pain, Nose Discharge, Nose Congestion, Mouth Pain, Mouth Swelling, Throat Pain, Throat Swelling, Other Respiratory: negative: Cough, Dry, Shortness of Breath, Hemoptysis, SOB with Excertion, Pleuritic Pain, Sputum, Wheezing Cardiovascular: negative: chest pain, palpitations, orthopnea, paroxysmal nocturnal dyspnea, edema, light headedness, other Gastrointestinal: negative: Nausea, Vomiting, Abdominal Pain, Diarrhea, Constipation, Melena, Hematochezia, Other Genitourinary: negative: Dysuria, Frequency, Incontinence, Hematuria, Retention , Other Musculoskeletal: negative: Neck Pain, Shoulder Pain, Arm Pain, Back Pain, Hand Pain, Leg Pain, Foot Pain, Other Skin: negative: Rash, Lesions, Reinaldo, Bruising, Other - Medications/Allergies Allergies/Adverse Reactions: Allergies Allergy/AdvReac Type Severity Reaction Status Date / Time bacitracin Allergy Mild Verified 11/14/15 00:46 [From Neosporin ([id number])] bacitracin zinc Allergy Verified 11/14/15 00:46 [From Neosporin ([id number])] ketorolac tromethamine Allergy Verified 11/14/15 00:46 [From Toradol] neomycin sulfate Allergy Verified 11/14/15 00:46 [From Neosporin ([id number])] Penicillins Allergy Verified 11/14/15 00:46 polymyxin B Allergy Verified 11/14/15 00:46 [From Neosporin ([id number])] sulfamethoxazole Allergy Verified 11/14/15 00:46 [From Bactrim] trimethoprim [From Bactrim] Allergy Verified 11/14/15 00:46 Medications: Current Medications Acetaminophen (Tylenol) 650 mg PO Q4H PRN PRN Reason: Headache/Fever or Pain Last Admin: 09/08/17 12:46 Dose: 650 mg Al Hydroxide/Mg Hydroxide (Maalox) 30 ml PO Q6H PRN PRN Reason: Heartburn or Indigestion Atorvastatin Calcium (Lipitor) 40 mg PO HS [facility] Last Admin: 09/08/17 21:26 Dose: 40 mg Calcium Carbonate (Tums) 1,000 mg PO Q4H PRN PRN Reason: Heartburn or Indigestion Cyanocobalamin (Vitamin B-12) 1,000 mcg PO DAILY [facility] Last Admin: 09/09/17 09:09 Dose: 1,000 mcg Famotidine (Pepcid) 20 mg PO DAILY [facility] Last Admin: 09/09/17 09:09 Dose: 20 mg Folic Acid (Folvite) 1 mg PO DAILY [facility] Last Admin: 09/09/17 09:09 Dose: 1 mg Hydralazine HCl (Apresoline) 5 mg SLOW IVP Q4H PRN PRN Reason: sbp greater than 150 Last Admin: 09/06/17 03:05 Dose: 5 mg Lisinopril (Zestril) 20 mg PO DAILY [facility] Last Admin: 09/08/17 08:47 Dose: 20 mg Melatonin (Melatonin) 3 mg PO HS [facility] Last Admin: 09/08/17 21:27 Dose: 3 mg Multivitamins/Minerals (Ocuvite With Lutein) 1 tab PO DAILY [facility] Last Admin: 09/09/17 09:09 Dose: 1 tab Saccharomyces Boulardii (Florastor) 250 mg PO DAILY [facility] Last Admin: 09/09/17 09:09 Dose: 250 mg Sertraline HCl (Zoloft) 12.5 mg PO DAILY [facility] Last Admin: 09/09/17 09:09 Dose: 12.5 mg Sodium Chloride (Flush - Normal Saline) 10 ml IVF Q12HR [facility] Last Admin: 09/09/17 09:13 Dose: 10 ml Sodium Chloride (Flush - Normal Saline) 10 ml IVF PRN PRN PRN Reason: Saline Flush Verapamil HCl (Calan Sr) 240 mg PO BID [facility] Last Admin: 09/09/17 09:09 Dose: 240 mg
[2017-09-09] MEDS: Lisinopril 20 MG TAB PO SCH (10:47)
[2017-09-09] MEDS: Atorvastatin Calcium 40 MG TAB PO SCH (20:02)
[2017-09-09] MEDS: Melatonin 3 MG TAB PO SCH (20:02)
[2017-09-10 06:42] LABS: Anion Gap 13 mmol/L (10-20); BUN (Urea Nitrogen) 24 mg/dL (9.8-20.1); Calc. Creatinine Clearance 35 mL/min (70-130); Calcium 8.6 mg/dL (7.8-10.44); Carbon Dioxide 22 mmol/L (23-31); Chloride 109 mmol/L (98-107); Estimated GFR-MDRD 56; Glucose 96 mg/dL (83-110); Potassium 4.1 mmol/L (3.5-5.1); Sodium 140 mmol/L (136-145)
[2017-09-10] MEDS: Vit A,C & E/Lutein/Minerals Tablet PO SCH (08:28)
[2017-09-10] MEDS: Famotidine 20 MG TAB PO SCH (08:28)
[2017-09-10] MEDS: Cyanocobalamin (Vitamin B-12) 1,000 MCG TAB PO SCH (08:28)
[2017-09-10] MEDS: Folic Acid 1 MG TAB PO SCH (08:28)
[2017-09-10] MEDS: Saccharomyces boulardii 250 MG CAP PO SCH (08:28)
[2017-09-10] MEDS: Lisinopril 20 MG TAB PO SCH (08:29)
--- NOTE | 2017-09-10 11:12 | DIS ---
DATE OF ADMISSION: 09/05/2017 DATE OF DISCHARGE: 09/10/2017 PRIMARY CARE PHYSICIAN: Dr. Alvaro Castro. DISCHARGE DISPOSITION: [facility]. PRIMARY DISCHARGE DIAGNOSES: History of mechanical fall 2 weeks ago and subsequent subdural hematoma with neurological deficit, status post mayra hole surgery for subdural hematoma, paroxysmal atrial fi brillation with rapid ventricular response, acute on chronic kidney failure, stage 3. SECONDARY DISCHARGE DIAGNOSES: Moderate protein calorie malnutrition, osteoporosis, macular degenera tion, macrocytic anemia, hypertension, dyslipidemia, anxiety and depression, paroxysmal atrial fibril lation, chronic kidney disease stage 3 and physical deconditioning. PRIMARY PROCEDURE/OPERATION: Subdural hematoma required mayra hole evacuation. RADIOLOGICAL INVESTIGATION: CT brain on admission showed left frontotemporal subdural hematoma with mass effect and rightward shift of septum pellucidum. CT brain was repeated after surgery. Echocard iography done during this admission showed diastolic dysfunction, moderate to severe tricuspid regurg itation. SIGNIFICANT LABORATORY DATA: WBC 8.8, hemoglobin 10.6, MCV 105, platelet 205. INR 1.0. Sodium 140, potassium 4.1, BUN 24, creatinine 0.94, calcium 8.6, LDL 71. Urinalysis: Leukocyte moderate, but u rine culture negative. DISCHARGE MEDICATIONS: Folic acid 1 mg p.o. daily, vitamin B12 1000 mcg p.o. daily, Fosamax 70 mg ev jenn week, lisinopril 20 mg p.o. daily, Lipitor 40 mg p.o. at bedtime, Pepcid 20 mg p.o. daily, melato shruthi 3 mg p.o. at bedtime, Florastor 250 mg p.o. daily, verapamil SR 240 mg p.o. b.i.d. CONTRAINDICATIONS: The patient is not on chronic anticoagulation therapy with atrial fibrillation be cause of subdural hematoma and contraindicated code status, DNR. INPATIENT CONSULTANTS: Neurosurgeon was primary while in hospital who did mayra hole evacuation. Car diologanibal, Dr. Zhu was following for atrial fibrillation with RVR. Dr. Alex saw this patient b ecause patient stayed in ICU after surgery. TEST RESULTS PENDING ON DISCHARGE: None. ALLERGIES: BACITRACIN and TORADOL. DISCHARGE PLAN: Post hospital, patient will follow up with primary care physician, neurosurgeon and primary river expedition guide. HOSPITAL COURSE: An 86-year-old female who had mechanical fall 2 weeks ago and subsequently she had neurologic decline, altered mental status, and weakness on the left side. She was having worsening o f subdural hematoma and that is why she was admitted under neurosurgeon. She required mayra hole repa ir for subdural hematoma and after surgery she remained in CCU and upon stabilization, she was transf erred to telemetry floor. She had atrial fibrillation with rapid ventricular response and thus requi red Cardizem drip and subsequently we started verapamil SR which she was taking prior to admission an d after that she converted to sinus rhythm. Initially, dose was only once a day and she had another episode of atrial fibrillation with RVR, so Cardizem drip was started and then we increased her home dose of verapamil b.i.d. With that, her heart rate remained controlled and she was in sinus rhythm. Patient had asymptomatic bacteriuria, but her culture was negative. She did not require any antibiot ic therapy. She had macrocytic anemia and that is why we started folic acid, vitamin B12 therapy. S he had acute kidney failure that was improved to normal with IV fluid and subsequently she was comple tely normal. Currently, patient does have suture over surgical site and neurosurgeon will take it ou t upon followup visit. The patient is overall medically stable for discharge with above-mentioned me dication. The patient is seen and examined at bedside today. PHYSICAL EXAMINATION: VITAL SIGNS: Currently, temperature 97.7, pulse 80, respiratory rate 18, saturation 95% on room air, blood pressure 121/86, and weight 118 pounds. GENERAL: The patient is currently alert, awake, no acute distress. HEAD: Normocephalic, atraumatic. EYES: Pupils round and reactive to light. Extraocular muscle intact. ENT: Oropharynx within normal limits. Moist mucous membranes, no oral lesion, no pharyngeal erythem a, no exudate. NECK: Supple. No JVD, no thyromegaly. LUNGS: Clear without any rhonchi or rales. CARDIAC: S1 and S2 regular without any murmur. ABDOMEN: Soft, bowel sounds present, nontender, nondistended. No organomegaly, no mass, no suprapub ic tenderness. BACK: Examination unremarkable. NEUROLOGIC: Grossly nonfocal examination.
--- NOTE | 2017-09-10 12:07 | PDOC.PN ---
- Subjective Encounter Start Date: 09/10/17 Encounter Start Time: 10:45 Patient seen and examined. No new complaints. No overnight events - Objective MAR Reviewed: Yes Vital Signs & Weight: Vital Signs (12 hours) Temp Pulse Resp BP BP Pulse Ox 09/10/17 08:29 178/77 H 09/10/17 08:00 97.7 F 80 18 121/86 95 09/10/17 03:50 97.8 F 65 17 151/65 H Weight Admit Weight 126 lb Weight 118 lb 2 oz Most Recent Monitor Data Heart Rate from ECG 84 NIBP 124/58 NIBP BP-Mean 76 Respiration from ECG 28 SpO2 97 I&O: 09/09/17 09/10/17 09/11/17 06:59 06:59 06:59 Intake Total 673 150 Balance 673 150 Result Diagrams: 09/07/17 11:24 09/10/17 05:36 Additional Labs: Accuchecks 09/09/17 10:51 POC Glucose 118 H EKG Reviewed by me: Yes (nsr) Phys Exam - Physical Examination Constitutional: NAD HEENT: PERRLA, moist MMs, sclera anicteric Neck: no JVD, supple Respiratory: no wheezing, no rales, no rhonchi Cardiovascular: RRR, no significant murmur, no rub Gastrointestinal: soft, non-tender, no distention, positive bowel sounds Musculoskeletal: no edema, pulses present Neurological: non-focal, normal sensation Psychiatric: normal affect, A&O x 3 Skin: no rash, normal turgor Dx/Plan (1) Acute worsening of stage 3 chronic kidney disease Code(s): N18.3 - CHRONIC KIDNEY DISEASE, STAGE 3 (MODERATE) Status: Acute Comment: improving (2) Fall Code(s): W19.XXXA - UNSPECIFIED FALL, INITIAL ENCOUNTER Status: Acute Qualifiers: Encounter type: subsequent encounter Qualified Code(s): W19.XXXD - Unspecified fall, subsequent encounter Comment: fall 2 weeks ago (3) Subdural hematoma, acute Code(s): S06.5X9A - TRAUM SUBDR HEM W LOC OF UNSP DURATION, INIT Status: Acute Comment: with neurological deficit (4) History of mayra hole surgery Code(s): Z98.890 - OTHER SPECIFIED POSTPROCEDURAL STATES Status: Acute Comment: this admission required mayra hole surgery (5) Paroxysmal atrial fibrillation with RVR Code(s): I48.0 - PAROXYSMAL ATRIAL FIBRILLATION Status: Acute (6) Anxiety and depression Code(s): F41.9 - ANXIETY DISORDER, UNSPECIFIED; F32.9 - MAJOR DEPRESSIVE DISORDER, SINGLE EPISODE, UNSPECIFIED Status: Chronic (7) HLD (hyperlipidemia) Code(s): E78.5 - HYPERLIPIDEMIA, UNSPECIFIED Status: Chronic (8) HTN (hypertension) Code(s): I10 - ESSENTIAL (PRIMARY) HYPERTENSION Status: Chronic (9) Macrocytic anemia Code(s): D53.9 - NUTRITIONAL ANEMIA, UNSPECIFIED Status: Chronic (10) Macular degeneration Code(s): H35.30 - UNSPECIFIED MACULAR DEGENERATION Status: Chronic (11) Osteoporosis Code(s): M81.0 - AGE-RELATED OSTEOPOROSIS W/O CURRENT PATHOLOGICAL FRACTURE Status: Chronic - Plan cont current plan of care, PT/OT, bilingual social worker * medication reviewed as below * symptomatic treatment * OK to discharge to SNU if neurosurgeon OK * see discharge summery * paper work already done. Review of Systems - Review of Systems Eyes: negative: Pain, Vision Change, Conjunctivae Inflammation, Eyelid Inflammation, Redness, Other ENT: negative: Ear Pain, Ear Discharge, Nose Pain, Nose Discharge, Nose Congestion, Mouth Pain, Mouth Swelling, Throat Pain, Throat Swelling, Other Respiratory: negative: Cough, Dry, Shortness of Breath, Hemoptysis, SOB with Excertion, Pleuritic Pain, Sputum, Wheezing Cardiovascular: negative: chest pain, palpitations, orthopnea, paroxysmal nocturnal dyspnea, edema, light headedness, other Gastrointestinal: negative: Nausea, Vomiting, Abdominal Pain, Diarrhea, Constipation, Melena, Hematochezia, Other Genitourinary: negative: Dysuria, Frequency, Incontinence, Hematuria, Retention , Other Musculoskeletal: negative: Neck Pain, Shoulder Pain, Arm Pain, Back Pain, Hand Pain, Leg Pain, Foot Pain, Other Skin: negative: Rash, Lesions, Reinaldo, Bruising, Other - Medications/Allergies Allergies/Adverse Reactions: Allergies Allergy/AdvReac Type Severity Reaction Status Date / Time bacitracin Allergy Mild Verified 11/14/15 00:46 [From Neosporin ([id number])] bacitracin zinc Allergy Verified 11/14/15 00:46 [From Neosporin ([id number])] ketorolac tromethamine Allergy Verified 11/14/15 00:46 [From Toradol] neomycin sulfate Allergy Verified 11/14/15 00:46 [From Neosporin ([id number])] Penicillins Allergy Verified 11/14/15 00:46 polymyxin B Allergy Verified 11/14/15 00:46 [From Neosporin ([id number])] sulfamethoxazole Allergy Verified 11/14/15 00:46 [From Bactrim] trimethoprim [From Bactrim] Allergy Verified 11/14/15 00:46 Medications: Current Medications Acetaminophen (Tylenol) 650 mg PO Q4H PRN PRN Reason: Headache/Fever or Pain Last Admin: 09/08/17 12:46 Dose: 650 mg Al Hydroxide/Mg Hydroxide (Maalox) 30 ml PO Q6H PRN PRN Reason: Heartburn or Indigestion Atorvastatin Calcium (Lipitor) 40 mg PO HS [facility] Last Admin: 09/09/17 20:02 Dose: 40 mg Calcium Carbonate (Tums) 1,000 mg PO Q4H PRN PRN Reason: Heartburn or Indigestion Cyanocobalamin (Vitamin B-12) 1,000 mcg PO DAILY [facility] Last Admin: 09/10/17 08:28 Dose: 1,000 mcg Famotidine (Pepcid) 20 mg PO DAILY [facility] Last Admin: 09/10/17 08:28 Dose: 20 mg Folic Acid (Folvite) 1 mg PO DAILY [facility] Last Admin: 09/10/17 08:28 Dose: 1 mg Hydralazine HCl (Apresoline) 5 mg SLOW IVP Q4H PRN PRN Reason: sbp greater than 150 Last Admin: 09/06/17 03:05 Dose: 5 mg Lisinopril (Zestril) 20 mg PO DAILY [facility] Last Admin: 09/10/17 08:29 Dose: 20 mg Melatonin (Melatonin) 3 mg PO [facility] Last Admin: 09/09/17 20:02 Dose: 3 mg Multivitamins/Minerals (Ocuvite With Lutein) 1 tab PO DAILY [facility] Last Admin: 09/10/17 08:28 Dose: 1 tab Saccharomyces Boulardii (Florastor) 250 mg PO DAILY [facility] Last Admin: 09/10/17 08:28 Dose: 250 mg Sertraline HCl (Zoloft) 12.5 mg PO DAILY [facility] Last Admin: 09/10/17 08:28 Dose: 12.5 mg Sodium Chloride (Flush - Normal Saline) 10 ml IVF Q12HR [facility] Last Admin: 09/10/17 08:29 Dose: 10 ml Sodium Chloride (Flush - Normal Saline) 10 ml IVF PRN PRN PRN Reason: Saline Flush Verapamil HCl (Calan Sr) 240 mg PO BID [facility] Last Admin: 09/10/17 08:28 Dose: 240 mg
[2017-09-10 12:54] VITALS: BMI 19.6
[2017-09-10 16:19] VITALS: BP 133/63; TEMP 98.4
== END 2017-09-10 20:08 | DRG 25 ==
LOC: ERS 11:11 → 2SE 14:37 → OBSVTOIN 09-05 11:35 → CCU 09-05 11:57 → 2NO 09-07 11:45
PROVIDERS: ADMIT Surgery; ATTEND Surgery
PROC: 009430Z Drainage of Intracranial Subdural Space with Drainage Device, Percutaneous Approach (ICD-10-PCS; principal; 2017-09-05)
DX: S06.5X0A Traumatic subdural hemorrhage without loss of consciousness, initial encounter (principal); G93.40 Encephalopathy, unspecified; S42.292A Other displaced fracture of upper end of left humerus, initial encounter for closed fracture; N17.9 Acute kidney failure, unspecified; E44.0 Moderate protein-calorie malnutrition; Z68.1 Body mass index [BMI] 19.9 or less, adult; I48.0 Paroxysmal atrial fibrillation; Z66 Do not resuscitate; I12.9 Hypertensive chronic kidney disease with stage 1 through stage 4 chronic kidney disease, or unspecified chronic kidney disease; N18.3 Chronic kidney disease, stage 3 (moderate); M81.0 Age-related osteoporosis without current pathological fracture; H35.30 Unspecified macular degeneration; D53.9 Nutritional anemia, unspecified; E78.5 Hyperlipidemia, unspecified; F41.9 Anxiety disorder, unspecified; F32.9 Major depressive disorder, single episode, unspecified; Z86.73 Personal history of transient ischemic attack (TIA), and cerebral infarction without residual deficits; Z88.6 Allergy status to analgesic agent; Z88.1 Allergy status to other antibiotic agents; Z88.2 Allergy status to sulfonamides; Z88.0 Allergy status to penicillin; Z79.82 Long term (current) use of aspirin; Z79.899 Other long term (current) drug therapy; W19.XXXA Unspecified fall, initial encounter
CPT/HCPCS: 36415; 36416; 51701; 70450; 80048; 80053; 80061; 81003; 81015; 85025; 85610; 85730; 86850; 86900; 86901; 87086; 93005; 93010; 93306; A4216; A4353; G8978-GP-CM; G8979-GP-CK; G8987-GO-CM; G8988-GO-CJ; J0131; J0360; J1100; J1956; J2001; J2405; J2704; J3010; J3490; J7050

== ENCOUNTER 2017-09-30 09:50 | Outpatient (CLI) | payer MEDICARE, OTHER ==
--- NOTE | 2017-09-30 11:57 | CT ---
CT BRAIN: HISTORY: Subdural hematoma. COMPARISON: 09/06/2017 TECHNIQUE: Noncontrast enhanced CT images of the brain are obtained on 09/30/2017. FINDINGS: Noncontrast enhanced CT images of the brain demonstrate removal of the left frontal subdural surgical drain. The subdural hematoma in the left parafalcine region, as well as in the left frontal parieta l region, is also significantly reduced and, at this time, has essentially resolved. No evidence of a significant subdural collection remains in the left frontal region. A tiny left parafalcine subdur al collection remains, maximum thickness measuring approximately 5 mm. A bur hole is seen in the lef t frontal skull. IMPRESSION: 1. Removal of the left frontal subdural surgical drain. 2. Significant reduction of the left parafalcine subdural hematoma and resolved left frontal parieta l subdural hematoma. 3. No significant midline shift or abnormality seen. POS: [facility]
== END 2017-09-30 09:51 | disposition home or self-care (01) ==
LOC: TBSIIMAG 09:50
PROVIDERS: ATTEND Surgery
DX: S06.5X0A Traumatic subdural hemorrhage without loss of consciousness, initial encounter (principal)
CPT/HCPCS: 70450